=== PATIENT | female | born 1970 | race American Indian/Alaskan Native ===

== ENCOUNTER 2016-09-16 13:27 | Outpatient (CLI) | payer OTHER ==
--- NOTE | 2016-09-17 09:57 | XRay Report ---
RIGHT RIBS, 2 VIEWS: History: Localized swelling and lump, trunk. Routine views of the rib cage demonstrate normal mineralization with no significant contour abnormalities, fractures or destructive lesions. Mild dextroscoliosis with early degenerative changes measures approximately 10 degrees from the superior endplate of T6 to the superior end plate of L1. IMPRESSION: No right rib abnormality detected. Stable scoliosis and early degenerative changes in the mid thoracic spine.
== END 2016-09-16 13:28 | disposition home or self-care (01) ==
LOC: XRAY 13:27
PROVIDERS: ATTEND Internal Medicine
DX: M47.894 Other spondylosis, thoracic region (principal); M41.84 Other forms of scoliosis, thoracic region

== ENCOUNTER 2016-10-21 07:47 | Outpatient (CLI) | payer OTHER ==
--- NOTE | 2016-10-21 09:39 | Ultrasound Report ---
Limited abdominal ultrasound: Palpable mass described on anterior low right rib. Images of the liver, gallbladder, and pancreas are unremarkable. The transverse diameter of the CBD is 3.7 mm. The right renal length is 10.1 cm and the kidney is echogenically normal. The transverse diameter of the proximal abdominal aorta is 1.8 cm. Imaging over the palpable area identified by the patient is echogenically unremarkable. Our technologist did not feel a specific mass but felt that this represented the rib margin. Impression: No echogenic abnormality identified.
== END 2016-10-21 07:48 | disposition home or self-care (01) ==
LOC: US 07:47
PROVIDERS: ATTEND Internal Medicine
DX: R22.2 Localized swelling, mass and lump, trunk (principal)
CPT/HCPCS: 76705

== ENCOUNTER 2017-07-05 13:28 | Outpatient (CLI) | payer OTHER ==
--- NOTE | 2017-07-05 14:10 | XRay Report ---
Chest 2 views: History: Pneumonia. Findings: Normal cardiomediastinal silhouette. Trachea is midline. No consolidation, pneumothorax or pleural effusion. Impression: No acute cardiopulmonary findings.
== END 2017-07-05 13:29 | disposition home or self-care (01) ==
LOC: XRAY 13:28
PROVIDERS: ATTEND Internal Medicine
DX: J15.8 Pneumonia due to other specified bacteria (principal)
CPT/HCPCS: 71020

== ENCOUNTER 2017-07-10 13:28 | Outpatient (CLI) | payer OTHER ==
--- NOTE | 2017-07-10 14:41 | Mammography Report ---
BILATERAL MAMMOGRAM: FINDINGS: The breast tissue is extremely dense (>75% glandular). This may lower the sensitivity of mammography. No mass, distortion, suspicious calcification, or skin change is seen. No significant change identified when compared to her prior study in June 2016. CAD was utilized. IMPRESSION: Negative mammogram. There is no mammographic evidence of malignancy. RECOMMENDATION: Follow-up per ACS guidelines. BI-RADS CATEGORY: 1 = Negative ACR BI-RADS MAMMOGRAPHIC CODES: 0 = Needs additional imaging evaluation; 1 = Negative; 2 = Benign; 3 = Probably benign; 4 = Suspicious; 5 = Malignant; 6 = Known biopsy-proven malignancy COMMENT: 1. Dense breast tissue, i.e., adenosis, fibrocystic changes, etc., may obscure an underlying neoplasm. 2. Approximately 10% of cancers are not detected with mammography. 3. A negative mammography report should not delay biopsy if a clinically suspicious mass is present. COMMENT: Patient follow-up letters are generated in [employer].
== END 2017-07-10 13:29 | disposition home or self-care (01) ==
LOC: MAMMO 13:28
PROVIDERS: ATTEND Internal Medicine
DX: Z12.31 Encounter for screening mammogram for malignant neoplasm of breast (principal)
CPT/HCPCS: 77067; G0202